=== PATIENT | female | born 1980 | race American Indian/Alaskan Native ===

== ENCOUNTER 2019-08-27 21:29 | Emergency (ER) | payer SELFPAY ==
[2019-08-27 22:00] VITALS: BP 180/98
[2019-08-27] MEDS ORDERED: methylPREDNISolone Sod Succinate 125 MG/2 ML INJ IV ONE (22:07)
[2019-08-27] MEDS ORDERED: EPINEPHrine/PF (1:1,000) 1 MG/1 ML INJ SUB-Q ONE (22:07)
[2019-08-27] MEDS ORDERED: FAMOTIDINE 20 MG/2 ML INJ IV ONE (22:07)
[2019-08-27] MEDS ORDERED: diphenhydrAMINE 50 MG/ML VIAL IV ONE (22:07)
--- NOTE | 2019-08-27 22:16 | Emergency Department Report ---
HPI <ASUNCION MONTERROSO - Last Filed: 08/28/19 04:53> - HPI HPI: 39-year-old -[place] female presents to the emergency department through triage with a complaint of an allergic reaction to shrimp. The patient developed hives, swelling of the throat and shortness of breath. Patient has never been here before and is unknown to this provider. She did not take anything for her symptoms prior to arrival today. <LANDRY DAMON - Last Filed: 08/29/19 14:09> - General Time Seen by Provider: 08/27/19 21:44 ED Past Medical Hx <ASUNCION MONTERROSO - Last Filed: 08/28/19 04:53> - Social History Smoking Status: Never Smoker Substance Use Type: None <LANDRY DAMON - Last Filed: 08/29/19 14:09> - Medications Home Medications: Home Medications Medication Instructions Recorded Confirmed Last Taken Type EPINEPHrine [Epipen 2-Nate] 0.3 mg IM ONCE PRN #1 applicatio 08/28/19 Unknown Rx Famotidine [Pepcid] 20 mg PO BID #8 tablet 08/28/19 Unknown Rx diphenhydrAMINE [Benadryl CAP] 25 mg PO Q8HR PRN #12 capsule 08/28/19 Unknown Rx predniSONE [Deltasone] 20 mg PO BID #8 tab 08/28/19 Unknown Rx ED Review of Systems ROS: Stated complaint: DIFF BREATHING Other details as noted in HPI <ASUNCION MONTERROSO - Last Filed: 08/28/19 04:53> ROS: Stated complaint: DIFF BREATHING Other details as noted in HPI Comment: All other systems reviewed and negative Constitutional: denies: chills, fever Eyes: denies: eye pain, vision change ENT: throat pain Respiratory: shortness of breath Cardiovascular: denies: chest pain Gastrointestinal: denies: abdominal pain, vomiting Skin: rash, pruritus Neurological: denies: headache, weakness <LANDRY DAMON - Last Filed: 08/29/19 14:09> Physical Exam - Physical Exam Vital Signs: Vital Signs 08/27/19 08/27/19 21:43 22:00 Pulse Rate 87 Respiratory 16 16 Rate Blood Pressure 180/98 [Left] O2 Sat by Pulse 100 Oximetry <ASUNCION MONTERROSO - Last Filed: 08/28/19 04:53> - Physical Exam Vital Signs: Vital Signs 08/27/19 08/27/19 21:43 22:00 Pulse Rate 87 Respiratory 16 16 Rate Blood Pressure 180/98 [Left] O2 Sat by Pulse 100 Oximetry Physical Exam: GENERAL: The patient is well-developed well-nourished. HENT: Normocephalic. Atraumatic. Patient has moist mucous membranes. There is some swelling of the tongue. Mallampati of 3. No drooling or trismus. EYES: Extraocular motions are intact. Pupils equal reactive to light bilaterally. NECK: Supple. Trachea is midline. There is some stridor heard. CHEST/LUNGS: Clear to auscultation. There is tachypnea but no accessory muscle use. HEART/CARDIOVASCULAR: Regular. There is no tachycardia. There is no murmur. ABDOMEN: Abdomen is soft, nontender. Patient has normal bowel sounds. There is no abdominal distention. SKIN: Patient's face is erythematous and there are multiple hives seen to the fa ce, neck and arms. NEURO: The patient is awake, alert, and oriented. The patient is cooperative. The patient has no focal neurologic deficits. Normal speech. MUSCULOSKELETAL: There is no tenderness or deformity. There is no evidence of acute injury. <LANDRY DAMON - Last Filed: 08/29/19 14:09> ED Course Vital Signs 08/27/19 08/27/19 21:43 22:00 Pulse Rate 87 Respiratory 16 16 Rate Blood Pressure 180/98 [Left] O2 Sat by Pulse 100 Oximetry <ASUNCION MONTERROSO - Last Filed: 08/28/19 04:53> Vital Signs 08/27/19 08/27/19 21:43 22:00 Pulse Rate 87 Respiratory 16 16 Rate Blood Pressure 180/98 [Left] O2 Sat by Pulse 100 Oximetry <LANDRY DAMON - Last Filed: 08/29/19 14:09> ED Medical Decision Making - Lab Data Result diagrams: 08/27/19 21:52 08/27/19 21:52 - Medical Decision Making I reexamine Mrs. Cnonolly prior to discharge. She was easily arousable. She was asleep with mouth closed prior me awaking her. Symptoms of hives or swelling shortness of breath have resolved. She is discharged home. <ASUNCION MONTERROSO - Last Filed: 08/28/19 04:53> - Lab Data Result diagrams: 08/27/19 21:52 08/27/19 21:52 - Radiology Data Radiology results: image reviewed interpreted by me: Chest x-ray does not show any acute process. There are no pleural effusions, o bvious pneumonia and there is no pneumothorax. X-ray of the neck does not show any soft tissue abnormality or airway occlusion. - Medical Decision Making The patient initially presented with anaphylaxis since possible angioedema as an allergic reaction to shrimp. Initially she appeared in some respiratory distress but improved enough with the epinephrine, steroids, Pepcid and Benadryl to avoid intubation. Labs have been unremarkable. Vital signs stable t hroughout ED course. She was reevaluated multiple times over multiple hours until she was awake and alert from the Benadryl and had no further signs of significant allergic reaction. Given a four-day course of steroids, Pepcid and Benadryl. Will return with any worsening of her symptoms or any acute distress. - Differential Diagnosis allergic reaction, angioedema, anaphylaxis <LANDRY DAMON S - Last Filed: 08/29/19 14:09> Critical care attestation.: If time is entered above; I have spent that time in minutes in the direct care of this critically ill patient, excluding procedure time. <ASUNCION MONTERROSO - Last Filed: 08/28/19 04:53> Critical Care Time: No Critical care attestation.: If time is entered above; I have spent that time in minutes in the direct care of this critically ill patient, excluding procedure time. <LANDRY DAMON S - Last Filed: 08/29/19 14:09> ED Disposition Is pt being admited?: No Does the pt Need Aspirin: No <ASUNCION MONTERROSO - Last Filed: 08/28/19 04:53> Is pt being admited?: No Time of Disposition: 03:27 <LANDRY DAMON - Last Filed: 08/29/19 14:09> Clinical Impression: Shrimp allergy Anaphylaxis Qualifiers: Encounter type: initial encounter Qualified Code(s): T78.2XXA - Anaphylactic shock, unspecified, initial encounter Allergic reaction Qualifiers: Encounter type: initial encounter Qualified Code(s): T78.40XA - Allergy, unspecified, initial encounter Disposition: - TO HOME OR SELFCARE Condition: Stable Instructions: Epinephrine (Injection), Food Allergy (ED), Anaphylaxis (ED) Additional Instructions: Please follow-up with your primary care physician in the next few days. Return to the emergency department immediately with any return of your symptoms of allergic reaction, or with any acute distress. I am prescribing you an EpiPen that should be used if you have any signs of anaphylaxis from an allergic reaction such as swelling of the tongue or throat, difficulty swallowing, shortness of breath or chest pain. If you have to use the EpiPen, he must call 911 or get to the emergency department immediately afterwards. Prescriptions: diphenhydrAMINE [Benadryl CAP] 25 mg PO Q8HR PRN #12 capsule PRN Reason: Allergic Reaction predniSONE [Deltasone] 20 mg PO BID #8 tab EPINEPHrine [Epipen 2-Nate] 0.3 mg IM ONCE PRN #1 applicatio PRN Reason: Anaphylaxis Famotidine [Pepcid] 20 mg PO BID #8 tablet Referrals: PRIMARY CARE,MD [Primary Care Provider] - 2-3 Days
[2019-08-27 22:17] LABS: Basophils % (Auto) 0.6 % (0.0-1.8); Eosinophils # (Auto) 0.1 K/mm3 (0.0-0.4); Eosinophils % (Auto) 2.2 % (0.0-4.3); Hematocrit 39.8 % (30.3-42.9); Lymphocytes # (Auto) 2.7 K/mm3 (1.2-5.4); Lymphocytes % (Auto) 42.3 % (13.4-35.0); Mean Corpuscular HGB Conc 33 % (30-34); Mean Corpuscular Volume 86 fl (79-97); Monocytes # (Auto) 0.5 K/mm3 (0.0-0.8); Monocytes % (Auto) 8.2 % (0.0-7.3); Platelet Count 191 K/mm3 (140-440); Red Blood Count 4.61 M/mm3 (3.65-5.03); Red Cell Distribution Width 14.2 % (13.2-15.2)
[2019-08-27 22:35] LABS: BUN/Creatinine Ratio 17; Blood Urea Nitrogen 15 mg/dL (7-17); Calcium 9.1 mg/dL (8.4-10.2); Hemolysis Index 30
--- NOTE | 2019-08-27 22:57 | XRay Report ---
Soft tissue neck 2 views. 08/27/2019. HISTORY: Allergic reaction. FINDINGS: Negative for prevertebral soft tissue swelling or epiglottic thickening. No soft tissue gas or foreign body is identified. Signer Name: Phil Farmer MD Signed: 08/27/2019 10:53 PM Workstation Name: [id number]
--- NOTE | 2019-08-27 22:58 | XRay Report ---
. CHEST 1 VIEW INDICATION: SOB. COMPARISON: None. FINDINGS: Support devices: None. Heart: Within normal limits. Lungs/Pleura: No acute air space or interstitial disease. Additional findings: None. IMPRESSION: No acute abnormality. Signer Name: Phil Farmer MD Signed: 08/27/2019 10:53 PM Workstation Name: [id number]
[2019-08-28] MEDS ORDERED: EPINEPHrine/PF (1:1,000) 1 MG/1 ML INJ ONE (04:48)
[2019-08-28] MEDS ORDERED: methylPREDNISolone Sod Succinate 125 MG/2 ML INJ ONE (04:48)
[2019-08-28] MEDS ORDERED: FAMOTIDINE 20 MG/2 ML INJ IV ONE (04:48)
[2019-08-28] MEDS ORDERED: diphenhydrAMINE 50 MG/ML VIAL ONE (04:50)
== END 2019-08-28 05:30 | disposition home or self-care (01) ==
LOC: ED 21:29
DX: T78.2XXA Anaphylactic shock, unspecified, initial encounter (principal); T78.40XA Allergy, unspecified, initial encounter; Z91.018 Allergy to other foods; Z91.013 Allergy to seafood; X58.XXXA Exposure to other specified factors, initial encounter
CPT/HCPCS: 36415; 70360; 71045; 80048; 85025; 96372; 96374; 96375; 99283; J0171; J1200; J2930